=== PATIENT | male | born 1950 | race Caucasian/White ===

== ENCOUNTER 2017-03-21 17:41 | Emergency (ER) | payer MEDICARE, OTHER | END 2017-03-21 20:03 | disposition home or self-care (01) | LOC: FER 17:41 | DX: S61.012A Laceration without foreign body of left thumb without damage to nail, initial encounter (principal); Z23 Encounter for immunization; W29.8XXA Contact with other powered hand tools and household machinery, initial encounter; Y92.009 Unspecified place in unspecified non-institutional (private) residence as the place of occurrence of the external cause | CPT/HCPCS: 73140; 90471 ==

== ENCOUNTER → 2021-04-02 | Day surgery (SDC) | payer MEDICARE, OTHER ==
[~2021-04-02] VITALS: Ht 182.9 cm; Wt 90.7 kg
[~2021-04-02] MED LIST: ALLOPURINOL300 MG PO; BENAZEPRIL HCL20 MG PO; MULTIVITAMINS1 EAC1 PO; MYRBETRIQ50 MG PO; NOVOLOG VI100 UNIT/1 SC; PERCOCET 10/321 EACH PO; PRAVACHOL80 MG PO; PRILOSEC20 MG PO; SYNTHROID88 MCG PO; TOUJEO MAX300 UNIT/1 SC; ULORIC80 MG PO; VITAMIN B125000 MCG PO; VITAMIN D35000 UNIT PO; ZOLOFT50 MG PO; ZOLPIDEM TARTRA10 MG PO
[2021-04-02 08:21] LABS: HCT 40.6 % (42.0-52.0); HGB 13.8 g/dl (13.2-18.0); MCH 30.6 pg (25.0-31.0); MPV 10.9 fL (6.0-9.5); RBC 4.51 M/uL (4.70-6.00); RDW 13.9 % (11.5-14.0); WBC 6.7 K/uL (4.0-10.5)
[2021-04-02 08:56] LABS: ALBUMIN 3.8 g/dL (3.4-5.0); BILIRUBIN - TOTAL 0.9 mg/dL (0.2-1.0); BUN/CREAT RATIO (CALC) 17.5 RATIO; CREATININE 1.2 mg/dL (0.67-1.17); GLOBULIN (CALCULATION) 3.9 g/dL; POTASSIUM 4.5 mmol/L (3.5-5.1); TOTAL PROTEIN 7.7 g/dL (6.4-8.2)
== END | disposition home or self-care (01) ==
LOC: FAS 08:30
PROVIDERS: Surgery
DX: Z12.11 Encounter for screening for malignant neoplasm of colon (principal); I12.9 Hypertensive chronic kidney disease with stage 1 through stage 4 chronic kidney disease, or unspecified chronic kidney disease; E11.22 Type 2 diabetes mellitus with diabetic chronic kidney disease; N18.30 Chronic kidney disease, stage 3 unspecified; F41.9 Anxiety disorder, unspecified; K21.9 Gastro-esophageal reflux disease without esophagitis; E78.00 Pure hypercholesterolemia, unspecified; E03.9 Hypothyroidism, unspecified; M06.9 Rheumatoid arthritis, unspecified; M10.9 Gout, unspecified; Z79.4 Long term (current) use of insulin; Z91.048 Other nonmedicinal substance allergy status; Z86.010 Personal history of colon polyps; Z85.528 Personal history of other malignant neoplasm of kidney; Z87.891 Personal history of nicotine dependence
CPT/HCPCS: 36415; 80053; J2704; J7120